=== PATIENT | female | born 1955 | race Caucasian/White ===

== ENCOUNTER 2021-01-23 11:19 | Inpatient (IN) | payer MEDICARE, BC ==
[2021-01-23] MEDS ORDERED: Meclizine HCl 25 MG TAB ONE (11:48)
[2021-01-23] MEDS ORDERED: Ondansetron PF 4 MG/2 ML Vial ONE (11:48)
[2021-01-23 12:13] LABS: Hemoglobin 12.6 g/dL (12.0-15.5); Mean Corpuscular HGB CONC 29.6 g/dL (32.0-36.0); Mean Corpuscular Hemoglobin 23.6 pg (27.0-33.0); Mean Corpuscular Volume 79.8 fl (81.6-98.3); Platelet Count 96 10x3/uL (150-450); RBC Distribution Width 17.7 % (11.5-14.5); Red Blood Cell (RBC) Count 5.34 10x6/uL (3.90-5.03); White Blood Cell (WBC) Count 9.6 10x3/uL (3.5-10.5)
[2021-01-23 12:20] LABS: ALT (SGPT) 19 U/L (8-55); AST (SGOT) 20 U/L (5-34); Albumin 4.4 g/dL (3.4-4.8); Alkaline Phosphatase 144 U/L (40-110); Anion Gap 22 mmol/L (10-20); BUN (Urea Nitrogen) 13 mg/dL (9.8-20.1); Bilirubin, Total 1.2 mg/dL (0.2-1.2); CK (CPK) 29 U/L (29-168); Calc. Creatinine Clearance 0 mL/min (70-130); Calcium 9.5 mg/dL (7.8-10.44); Carbon Dioxide 24 mmol/L (23-31); Globulin 2.4 g/dL (2.4-3.5); Glucose 119 mg/dL (80-115); Lipase 12 U/L (8-78); Protein, Total 6.8 g/dL (5.8-8.1)
[2021-01-23 12:37] LABS: CKMB 0.8 ng/mL (0-6.6)
[2021-01-23 12:45] LABS: MDiff Complete? YES
[2021-01-23 12:46] LABS: Band 4 % (5-11); Lymphocytes 11 % (21-51); Neutrophil 74 % (42-75)
[2021-01-23 12:47] LABS: Hypochromia SLIGHT = 6-15 cells (100X) (0-5/hpf); Microcytosis SLIGHT = 6-15 cells (100X) (0-5/hpf); Monocytes 7 % (0-10); Myelocyte 3 % (0-0); Nucleated RBC 5 % (0); Polychromasia SLIGHT = 2-3 cells (100X) (0-2/hpf)
[2021-01-23 12:49] LABS: Elliptocytes SLIGHT = 2-5 cells (100X) (0-1/hpf); Platelet Morphology Comment Appears Decreased
[2021-01-23 12:59] LABS: Anisocytosis SLIGHT = 6-15 cells (100X) (0-5/hpf)
[2021-01-23 13:59] LABS: Sodium 137 mmol/L (136-145)
[2021-01-23 14:00] LABS: Potassium 4.1 mmol/L (3.5-5.1)
[2021-01-23 14:01] LABS: Chloride 97 mmol/L (98-107)
[2021-01-23 15:11] LABS: Troponin I 0.037 ng/mL (< 0.028)
[2021-01-23 15:18] LABS: Anion Gap 13 mmol/L (10-20)
[2021-01-23 15:28] LABS: BUN (Urea Nitrogen) 12 mg/dL (9.8-20.1); Calc. Creatinine Clearance 0 mL/min (70-130); Calcium 8.3 mg/dL (7.8-10.44); Carbon Dioxide 25 mmol/L (23-31); Chloride 106 mmol/L (98-107); Glucose 89 mg/dL (80-115); Potassium 4.3 mmol/L (3.5-5.1); Sodium 140 mmol/L (136-145)
[2021-01-23] MEDS ORDERED: Diazepam 10 MG/2 ML SYRINGE IVP PRN (16:46)
[2021-01-23] MEDS ORDERED: Meclizine HCl 12.5 MG TAB PO PRN (16:49)
[2021-01-23] MEDS ORDERED: Sodium Chloride 0.9% 1,000 ML IV SCH (17:00)
[2021-01-23] MEDS ORDERED: predniSONE 5 MG TAB PO PRN (17:03)
[2021-01-23 17:07] VITALS: BMI 25.0
[2021-01-23] MEDS: Promethazine HCl 12.5 MG in Sodium Chloride 0.9% 50 ML IVPB PRN ×2 (17:22→23:18)
[2021-01-23 18:48] LABS: Troponin I 0.027 ng/mL (< 0.028)
[2021-01-23] MEDS ORDERED: DOXEPIN HCL 6 MG PO SCH (21:00)
[2021-01-23] MEDS ORDERED: DANAZOL 200 MG PO SCH (21:00)
[2021-01-23] MEDS: ALPRAZolam 0.25 MG TAB PO SCH (21:42)
[2021-01-24] MEDS: Levothyroxine Sodium 25 MCG TAB PO SCH (06:08)
[2021-01-24] MEDS: lamoTRIgine 100 MG TAB PO SCH (09:20)
[2021-01-24] MEDS: Venlafaxine HCl XR 75 MG CAP PO SCH (09:20)
[2021-01-24] MEDS: ALPRAZolam 0.25 MG TAB PO SCH ×3 (09:20→21:50)
[2021-01-24 16:50] LABS: SARS-CoV-2 PCR by NAA Not Detected (NotDetected)
[2021-01-24] MEDS: hydrOXYzine 25 MG TAB PO PRN (22:12)
[2021-01-25] MEDS: hydrOXYzine 25 MG TAB PO PRN (05:43)
[2021-01-25] MEDS: Levothyroxine Sodium 25 MCG TAB PO SCH (05:43)
[2021-01-25] MEDS: Venlafaxine HCl XR 75 MG CAP PO SCH (09:04)
[2021-01-25] MEDS: lamoTRIgine 100 MG TAB PO SCH (09:04)
[2021-01-25] MEDS: ALPRAZolam 0.25 MG TAB PO SCH ×2 (09:04→15:54)
[2021-01-25 15:33] VITALS: BP 126/74; TEMP 98.2
== END 2021-01-25 17:20 | disposition home or self-care (01) | DRG 149 ==
LOC: CSHERS 11:19 → CSHTELE 14:13 → INTOOBSV 14:46 → CSHTELE 14:46 → UNDOADMOB 14:46 → OBSVTOIN 01-25 11:32
PROVIDERS: ADMIT Hospitalist; ATTEND Hospitalist
DX: H81.10 Benign paroxysmal vertigo, unspecified ear (principal); C94.40 Acute panmyelosis with myelofibrosis not having achieved remission; E03.9 Hypothyroidism, unspecified; F41.9 Anxiety disorder, unspecified; F32.9 Major depressive disorder, single episode, unspecified; I10 Essential (primary) hypertension; R11.2 Nausea with vomiting, unspecified; M06.9 Rheumatoid arthritis, unspecified; Z90.49 Acquired absence of other specified parts of digestive tract; I65.22 Occlusion and stenosis of left carotid artery; Z20.822 Contact with and (suspected) exposure to COVID-19
CPT/HCPCS: 36415; 70450; 71045; 74177; 80053; 82550; 82553; 83605; 83690; 84484; 85025; 87635; 93005; 96374; 96375; G0378; J0610; J2405; J2550; J3490; U0003; U0005

== ENCOUNTER 2021-02-01 14:43 | Emergency (ER) | payer MEDICARE, BC ==
[2021-02-01 15:57] LABS: Hemoglobin 11.1 g/dL (12.0-15.5); Mean Corpuscular HGB CONC 29.4 g/dL (32.0-36.0); Mean Corpuscular Hemoglobin 22.9 pg (27.0-33.0); Mean Corpuscular Volume 77.7 fl (81.6-98.3); RBC Distribution Width 17.2 % (11.5-14.5); Red Blood Cell (RBC) Count 4.85 10x6/uL (3.90-5.03); White Blood Cell (WBC) Count 7.9 10x3/uL (3.5-10.5)
[2021-02-01 16:04] LABS: Acetaminophen Less than 6.0 mcg/mL (10.0-30.0); Alcohol Less than 10 mg/dL (Less than 10); CK (CPK) 37 U/L (29-168); Salicylate Less than 8.0 mg/dL (15.0-30.0)
[2021-02-01 16:05] LABS: Bilirubin Neg (Negative); Blood, Urine Negative (Negative); Clarity Clear (Clear); Glucose, Urine (Dipstick) Normal (Negative); Ketone, Urine Negative (Negative); Leukocyte Negative (Negative); Nitrite Negative (Negative); Protein, Urine (Dipstick) Negative (Neg-Trace); Urobilinogen Normal mg/dL (Less than 2)
[2021-02-01 16:13] LABS: Amphetamine Not Detected (NotDetected); Barbiturates Screen Not Detected (NotDetected); Benzodiazepine Screen Not Detected (NotDetected); Cocaine Metabolite Screen Not Detected (NotDetected); Methadone Not Detected (NotDetected); Methamphetamine Not Detected (NotDetected); Opiate Screen Not Detected (NotDetected); Oxycodone Screen Not Detected (NotDetected); Phencyclidine (PCP) Not Detected (NotDetected); THC/Cannabinoid Screen Not Detected (NotDetected); Tricyclic Screen Not Detected (NotDetected)
[2021-02-01 16:23] LABS: INR-International Normal Ratio 1.1; PTT 34.5 sec (22.0-33.0); Prothrombin Time 11.4 sec (9.5-12.1)
[2021-02-01 16:30] LABS: ALT (SGPT) 11 U/L (8-55); AST (SGOT) 16 U/L (5-34); Albumin 4.8 g/dL (3.4-4.8); Alkaline Phosphatase 123 U/L (40-110); Anion Gap 16 mmol/L (10-20); BUN (Urea Nitrogen) 16 mg/dL (9.8-20.1); Bilirubin, Total 0.8 mg/dL (0.2-1.2); Calc. Creatinine Clearance 0 mL/min (70-130); Calcium 9.9 mg/dL (7.8-10.44); Carbon Dioxide 27 mmol/L (23-31); Chloride 99 mmol/L (98-107); Globulin 2.5 g/dL (2.4-3.5); Glucose 95 mg/dL (80-115); Potassium 3.9 mmol/L (3.5-5.1); Protein, Total 7.3 g/dL (5.8-8.1); Sodium 138 mmol/L (136-145)
[2021-02-01 17:24] LABS: Band 1 % (5-11); Eosinophils 1 % (0-10); Lymphocytes 20 % (21-51); Monocytes 5 % (0-10); Myelocyte 3 % (0-0); Neutrophil 66 % (42-75); Nucleated RBC 5 % (0); Promyelocytes 1 % (0-0); Reactive Lymphocytes 2 % (0-10)
[2021-02-01 17:25] LABS: Platelet Count 88 10x3/uL (150-450)
[2021-02-01 17:26] LABS: Anisocytosis SLIGHT = 6-15 cells (100X) (0-5/hpf); Hypochromia SLIGHT = 6-15 cells (100X) (0-5/hpf); MDiff Complete? YES; Manual Diff?? YES; Microcytosis SLIGHT = 6-15 cells (100X) (0-5/hpf); Polychromasia SLIGHT = 2-3 cells (100X) (0-2/hpf)
[2021-02-01 17:27] LABS: Stomatocytes SLIGHT = 2-5 cells (100X) (0-1/hpf)
[2021-02-01 17:28] LABS: Elliptocytes MODERATE= 6-15 cells (100X) (0-1/hpf); Ovalocytes SLIGHT = 2-5 cells (100X) (0-1/hpf); Poikilocytosis SLIGHT = 6-15 cells (100X) (0-5/hpf); Tear Drops MODERATE= 6-15 cells (100X) (0-1/hpf)
[2021-02-01 17:29] LABS: Large Platelets SLIGHT; Platelet Morphology Comment Appears Decreased
[2021-02-01] MEDS ORDERED: Lorazepam 1 MG TAB ONE (18:02)
== END 2021-02-01 20:16 | disposition home or self-care (01) ==
LOC: CSHERS 14:43
DX: H81.10 Benign paroxysmal vertigo, unspecified ear (principal); R29.700 NIHSS score 0; I11.0 Hypertensive heart disease with heart failure; I50.9 Heart failure, unspecified; M06.9 Rheumatoid arthritis, unspecified; D75.81 Myelofibrosis; J42 Unspecified chronic bronchitis; Z79.899 Other long term (current) drug therapy
CPT/HCPCS: 70450; 71045; 80053; 80306; 80307; 81003; 82550; 83735; 84443; 84484; 85025; 85610; 85730; 93005

== ENCOUNTER 2021-02-02 23:58 | Emergency (ER) | payer MEDICARE, BC | END 2021-02-03 01:05 | disposition home or self-care (01) | LOC: CSHERS 23:58 | DX: Z00.00 Encounter for general adult medical examination without abnormal findings (principal); M06.9 Rheumatoid arthritis, unspecified; J42 Unspecified chronic bronchitis; I11.0 Hypertensive heart disease with heart failure; I50.9 Heart failure, unspecified; Z79.899 Other long term (current) drug therapy | CPT/HCPCS: 99281 ==

== ENCOUNTER 2022-03-27 14:30 | Emergency (ER) | payer MEDICARE, BC ==
[2022-03-27 15:41] LABS: Hemoglobin 9.3 g/dL (12.0-15.5); Mean Corpuscular HGB CONC 33.2 g/dL (32.0-36.0); Mean Corpuscular Hemoglobin 27.8 pg (27.0-33.0); Mean Corpuscular Volume 83.8 fl (81.6-98.3); Platelet Count 57 10x3/uL (150-450); RBC Distribution Width 18.6 % (11.5-14.5); Red Blood Cell (RBC) Count 3.34 10x6/uL (3.90-5.03); White Blood Cell (WBC) Count 6.5 10x3/uL (3.5-10.5)
[2022-03-27 15:48] LABS: ALT (SGPT) 24 U/L (8-55); AST (SGOT) 29 U/L (5-34); Albumin 4.2 g/dL (3.4-4.8); Alkaline Phosphatase 103 U/L (40-110); Anion Gap 18 mmol/L (10-20); BUN (Urea Nitrogen) 23 mg/dL (9.8-20.1); CK (CPK) 23 U/L (29-168); Calc. Creatinine Clearance 0 mL/min (70-130); Calcium 8.7 mg/dL (7.8-10.44); Carbon Dioxide 18 mmol/L (23-31); Chloride 102 mmol/L (98-107); Globulin 2.2 g/dL (2.4-3.5); Glucose 126 mg/dL (80-115); Magnesium 2.4 mg/dL (1.6-2.6); Potassium 5.1 mmol/L (3.5-5.1); Protein, Total 6.4 g/dL (5.8-8.1); Sodium 133 mmol/L (136-145)
[2022-03-27 16:07] LABS: Band 3 % (5-11); Lymphocytes 13 % (21-51); Monocytes 4 % (0-10); Myelocyte 5 % (0-0); Neutrophil 75 % (42-75); Nucleated RBC 4 % (0)
[2022-03-27 16:09] LABS: MDiff Complete? YES
[2022-03-27 16:10] LABS: Anisocytosis SLIGHT = 6-15 cells (100X) (0-5/hpf); Poikilocytosis SLIGHT = 6-15 cells (100X) (0-5/hpf)
[2022-03-27 16:12] LABS: Ovalocytes SLIGHT = 2-5 cells (100X) (0-1/hpf); Platelet Morphology Comment Appears Decreased; Polychromasia SLIGHT = 2-3 cells (100X) (0-2/hpf); Schistocytes SLIGHT = 2-5 cells (100X) (0-1/hpf); Tear Drops SLIGHT = 2-5 cells (100X) (0-1/hpf)
[2022-03-27 16:38] LABS: Bilirubin Neg (Negative); Blood, Urine Negative (Negative); Clarity Clear (Clear); Glucose, Urine (Dipstick) Normal (Negative); Ketone, Urine Negative (Negative); Leukocyte 25 (Negative); Nitrite Negative (Negative); Protein, Urine (Dipstick) Negative (Neg-Trace); Specific Gravity, Urine 1.015 (1.002-1.036); Urobilinogen Normal mg/dL (Less than 2)
[2022-03-27 16:47] LABS: Bacteria/HPF 1+ HPF (None Seen); RBC/HPF 0-3 HPF (0-3); Squamous Epithelial 0-3 HPF (0-3); WBC/HPF 0-3 HPF (0-3)
== END 2022-03-27 17:09 | disposition home or self-care (01) ==
LOC: CSHERS 14:30
DX: D64.9 Anemia, unspecified (principal); R53.1 Weakness; I11.0 Hypertensive heart disease with heart failure; I50.9 Heart failure, unspecified; Z79.899 Other long term (current) drug therapy
CPT/HCPCS: 36415; 70450; 71045; 80053; 81003; 81015; 82550; 83615; 83735; 85025; 85046; 86900; 86901; 93005

== ENCOUNTER 2022-06-23 11:03 | Emergency (ER) | payer MEDICARE, BC ==
[2022-06-23 12:56] LABS: Hemoglobin 8.1 g/dL (12.0-15.5); Mean Corpuscular Hemoglobin 26.3 pg (27.0-33.0); Mean Corpuscular Volume 87.7 fl (81.6-98.3); Mean Platelet Volume 11.6 fl (7.4-10.4); Platelet Count 84 10x3/uL (150-450); RBC Distribution Width 18.7 % (11.5-14.5); Red Blood Cell (RBC) Count 3.08 10x6/uL (3.90-5.03)
[2022-06-23 12:57] LABS: ALT (SGPT) 19 U/L (8-55); AST (SGOT) 26 U/L (5-34); Alkaline Phosphatase 74 U/L (40-110); Anion Gap 14 mmol/L (10-20); BUN (Urea Nitrogen) 21 mg/dL (9.8-20.1); Bilirubin, Total 0.8 mg/dL (0.2-1.2); Calc. Creatinine Clearance 0 mL/min (70-130); Calcium 8.8 mg/dL (7.8-10.44); Carbon Dioxide 23 mmol/L (23-31); Chloride 98 mmol/L (98-107); Estimated GFR 34; Globulin 2.1 g/dL (2.4-3.5); Glucose 88 mg/dL (80-115); Potassium 4.3 mmol/L (3.5-5.1); Protein, Total 6.1 g/dL (5.8-8.1); Sodium 131 mmol/L (136-145)
[2022-06-23 13:16] LABS: MDiff Complete? YES
[2022-06-23 13:31] LABS: Band 5 % (5-11); Lymphocytes 12 % (21-51); Metamyelocyte 2 % (0-0); Monocytes 4 % (0-10); Neutrophil 73 % (42-75); Nucleated RBC 3 % (0); Platelet Morphology Comment Appears Decreased; Reactive Lymphocytes 4 % (0-10)
[2022-06-23 13:32] LABS: Anisocytosis SLIGHT = 6-15 cells (100X) (0-5/hpf); Hypochromia SLIGHT = 6-15 cells (100X) (0-5/hpf); Microcytosis SLIGHT = 6-15 cells (100X) (0-5/hpf); Ovalocytes SLIGHT = 2-5 cells (100X) (0-1/hpf); Polychromasia SLIGHT = 2-3 cells (100X) (0-2/hpf); Tear Drops SLIGHT = 2-5 cells (100X) (0-1/hpf)
== END 2022-06-23 13:00 | disposition home or self-care (01) ==
LOC: CSHERS 11:03
DX: R53.1 Weakness (principal); I11.0 Hypertensive heart disease with heart failure; I50.9 Heart failure, unspecified; M06.9 Rheumatoid arthritis, unspecified; J42 Unspecified chronic bronchitis; Z79.899 Other long term (current) drug therapy
CPT/HCPCS: 36415; 80053; 85025; 86850; 86900; 86901; 93005

== ENCOUNTER 2022-07-18 11:16 | Outpatient (CLI) | payer MEDICARE, BC | END 2022-07-18 11:17 | disposition home or self-care (01) | LOC: CSHMAMMO 11:16 | PROVIDERS: ATTEND Family Medicine | DX: Z12.31 Encounter for screening mammogram for malignant neoplasm of breast (principal); Z85.89 Personal history of malignant neoplasm of other organs and systems | CPT/HCPCS: 77063; 77067 ==

== ENCOUNTER 2022-12-01 09:30 | Emergency (ER) | payer OTHER, MEDICARE, BC ==
[2022-12-01] MEDS ORDERED: Ketorolac Tromethamine 30 MG/ML VIAL ONE (10:55)
== END 2022-12-01 11:00 | disposition home or self-care (01) ==
LOC: CSHERS 09:30
DX: S16.1XXA Strain of muscle, fascia and tendon at neck level, initial encounter (principal); S29.012A Strain of muscle and tendon of back wall of thorax, initial encounter; I11.0 Hypertensive heart disease with heart failure; I50.9 Heart failure, unspecified; V49.9XXA Car occupant (driver) (passenger) injured in unspecified traffic accident, initial encounter
CPT/HCPCS: 96372; 99283; J1885

== ENCOUNTER 2022-12-16 11:52 | Emergency (ER) | payer MEDICARE, BC ==
[2022-12-16 13:59] LABS: Hemoglobin 8.7 g/dL (12.0-15.5); Mean Corpuscular HGB CONC 30.7 g/dL (32.0-36.0); Mean Corpuscular Hemoglobin 26.9 pg (27.0-33.0); Mean Corpuscular Volume 87.6 fl (81.6-98.3); Mean Platelet Volume 9.2 fl (7.4-10.4); Platelet Count 74 10x3/uL (150-450); RBC Distribution Width 17.2 % (11.5-14.5); Red Blood Cell (RBC) Count 3.23 10x6/uL (3.90-5.03); White Blood Cell (WBC) Count 4.6 10x3/uL (3.5-10.5)
[2022-12-16 14:02] LABS: ALT (SGPT) 16 U/L (8-55); AST (SGOT) 22 U/L (5-34); Albumin 4.1 g/dL (3.4-4.8); Alkaline Phosphatase 81 U/L (40-110); Anion Gap 12 mmol/L (10-20); BUN (Urea Nitrogen) 21 mg/dL (9.8-20.1); Bilirubin, Total 0.8 mg/dL (0.2-1.2); Calc. Creatinine Clearance 0 mL/min (70-130); Calcium 8.7 mg/dL (7.8-10.44); Carbon Dioxide 25 mmol/L (23-31); Chloride 101 mmol/L (98-107); Estimated GFR 53; Globulin 2.1 g/dL (2.4-3.5); Glucose 67 mg/dL (80-115); Potassium 5.1 mmol/L (3.5-5.1); Protein, Total 6.2 g/dL (5.8-8.1); Sodium 133 mmol/L (136-145)
[2022-12-16 14:10] LABS: Lymphocytes 34 % (21-51); Metamyelocyte 1 % (0-0); Monocytes 7 % (0-10); Myelocyte 1 % (0-0); Nucleated RBC 3 % (0)
[2022-12-16 14:11] LABS: Band 3 % (5-11); Neutrophil 53 % (42-75)
[2022-12-16 14:12] LABS: Anisocytosis SLIGHT = 6-15 cells (100X) (0-5/hpf); Elliptocytes SLIGHT = 2-5 cells (100X) (0-1/hpf); Ovalocytes MODERATE= 6-15 cells (100X) (0-1/hpf); Poikilocytosis MODERATE=16-30 cells (100X) (0-5/hpf); Polychromasia SLIGHT = 2-3 cells (100X) (0-2/hpf)
[2022-12-16 14:13] LABS: Large Platelets SLIGHT; Microcytosis SLIGHT = 6-15 cells (100X) (0-5/hpf); Platelet Morphology Comment Appears Decreased; Tear Drops MODERATE= 6-15 cells (100X) (0-1/hpf)
[2022-12-16 14:14] LABS: Vacuoles SLIGHT
[2022-12-16 14:15] LABS: MDiff Complete? YES
[2022-12-16] MEDS ORDERED: Lorazepam 2 MG/ML VIAL ONE (14:33)
[2022-12-16 15:18] LABS: Bilirubin Neg (Negative); Blood, Urine Negative (Negative); Glucose, Urine (Dipstick) Normal (Negative); Ketone, Urine Negative (Negative); Leukocyte Negative (Negative); Nitrite Negative (Negative); Protein, Urine (Dipstick) Negative (Neg-Trace); Specific Gravity, Urine 1.015 (1.005-1.030); Urobilinogen Normal mg/dL (Less than 2)
[2022-12-16 15:20] LABS: Clarity Clear (Clear)
== END 2022-12-16 16:40 | disposition home or self-care (01) ==
LOC: CSHERS 11:52 → EEVIPCON 11:52 → CSHERS 16:40
DX: R53.1 Weakness (principal); I11.0 Hypertensive heart disease with heart failure; I50.9 Heart failure, unspecified
CPT/HCPCS: 36415; 70450; 80053; 81003; 83605; 84484; 85025; 93005; 96374; J2060

== ENCOUNTER 2022-12-27 10:30 | Emergency (ER) | payer MEDICARE, BC ==
[2022-12-27 11:49] LABS: Hemoglobin 8.1 g/dL (12.0-15.5); Mean Corpuscular HGB CONC 30.5 g/dL (32.0-36.0); Mean Corpuscular Hemoglobin 26.7 pg (27.0-33.0); Mean Corpuscular Volume 87.8 fl (81.6-98.3); Mean Platelet Volume 9.8 fl (7.4-10.4); Platelet Count 53 10x3/uL (150-450); Red Blood Cell (RBC) Count 3.03 10x6/uL (3.90-5.03)
[2022-12-27 12:01] LABS: ALT (SGPT) 16 U/L (8-55); AST (SGOT) 21 U/L (5-34); Alkaline Phosphatase 56 U/L (40-110); Anion Gap 13 mmol/L (10-20); BUN (Urea Nitrogen) 14 mg/dL (9.8-20.1); Bilirubin, Total 0.9 mg/dL (0.2-1.2); Calc. Creatinine Clearance 0 mL/min (70-130); Calcium 9.3 mg/dL (7.8-10.44); Carbon Dioxide 24 mmol/L (23-31); Chloride 107 mmol/L (98-107); Estimated GFR 51; Globulin 1.7 g/dL (2.4-3.5); Glucose 64 mg/dL (80-115); Lipase 8 U/L (8-78); Potassium 4.3 mmol/L (3.5-5.1); Protein, Total 5.7 g/dL (5.8-8.1); Sodium 140 mmol/L (136-145)
[2022-12-27 12:20] LABS: MDiff Complete? YES
[2022-12-27 12:33] LABS: Band 3 % (5-11); Neutrophil 61 % (42-75); Nucleated RBC 7 % (0); Reactive Lymphocytes 1 % (0-10)
[2022-12-27 12:34] LABS: Lymphocytes 23 % (21-51); Monocytes 11 % (0-10)
[2022-12-27 12:38] LABS: Ovalocytes MODERATE= 6-15 cells (100X) (0-1/hpf); Tear Drops SLIGHT = 2-5 cells (100X) (0-1/hpf)
[2022-12-27 12:41] LABS: Hypochromia SLIGHT = 6-15 cells (100X) (0-5/hpf); Polychromasia SLIGHT = 2-3 cells (100X) (0-2/hpf); Stomatocytes SLIGHT = 2-5 cells (100X) (0-1/hpf)
[2022-12-27 12:42] LABS: Elliptocytes SLIGHT = 2-5 cells (100X) (0-1/hpf); Macrocytosis SLIGHT = 6-15 cells (100X) (0-5/hpf); Microcytosis SLIGHT = 6-15 cells (100X) (0-5/hpf); Platelet Morphology Comment Appears Decreased
[2022-12-27 12:43] LABS: White Blood Cell (WBC) Count 2.7 10x3/uL (3.5-10.5)
== END 2022-12-27 15:33 | disposition home or self-care (01) ==
LOC: CSHERS 10:30
DX: R11.10 Vomiting, unspecified (principal); D72.819 Decreased white blood cell count, unspecified; I11.0 Hypertensive heart disease with heart failure; I50.9 Heart failure, unspecified
CPT/HCPCS: 36415; 80053; 83605; 83690; 85025; 99284

== ENCOUNTER 2022-12-28 09:46 | Emergency (ER) | payer MEDICARE, BC ==
[2022-12-28 10:58] LABS: ALT (SGPT) 15 U/L (8-55); AST (SGOT) 22 U/L (5-34); Albumin 4.1 g/dL (3.4-4.8); Alkaline Phosphatase 60 U/L (40-110); Anion Gap 13 mmol/L (10-20); BUN (Urea Nitrogen) 10 mg/dL (9.8-20.1); Bilirubin, Total 0.7 mg/dL (0.2-1.2); Calc. Creatinine Clearance 0 mL/min (70-130); Calcium 8.9 mg/dL (7.8-10.44); Carbon Dioxide 24 mmol/L (23-31); Chloride 107 mmol/L (98-107); Estimated GFR 62; Glucose 80 mg/dL (80-115); Hemoglobin 8.5 g/dL (12.0-15.5); Lipase 9 U/L (8-78); Mean Corpuscular Hemoglobin 26.6 pg (27.0-33.0); Mean Corpuscular Volume 88.7 fl (81.6-98.3); Mean Platelet Volume 9.2 fl (7.4-10.4); Platelet Count 45 10x3/uL (150-450); Potassium 4.1 mmol/L (3.5-5.1); Protein, Total 6.1 g/dL (5.8-8.1); Red Blood Cell (RBC) Count 3.19 10x6/uL (3.90-5.03); Sodium 140 mmol/L (136-145); White Blood Cell (WBC) Count 2.5 10x3/uL (3.5-10.5)
[2022-12-28 11:05] LABS: MDiff Complete? YES
[2022-12-28 11:37] LABS: Band 3 % (5-11); Lymphocytes 25 % (21-51); Monocytes 6 % (0-10); Neutrophil 64 % (42-75); Nucleated RBC 6 % (0); Promyelocytes 1 % (0-0); Reactive Lymphocytes 1 % (0-10)
[2022-12-28 11:38] LABS: Hypochromia SLIGHT = 6-15 cells (100X) (0-5/hpf); Polychromasia SLIGHT = 2-3 cells (100X) (0-2/hpf)
[2022-12-28] MEDS ORDERED: Ondansetron PF 4 MG/2 ML Vial ONE (11:38)
[2022-12-28 11:39] LABS: Ovalocytes SLIGHT = 2-5 cells (100X) (0-1/hpf)
[2022-12-28] MEDS ORDERED: Lorazepam 2 MG/ML VIAL ONE (11:39)
[2022-12-28 11:40] LABS: Elliptocytes SLIGHT = 2-5 cells (100X) (0-1/hpf); Macrocytosis SLIGHT = 6-15 cells (100X) (0-5/hpf); Microcytosis SLIGHT = 6-15 cells (100X) (0-5/hpf); Tear Drops SLIGHT = 2-5 cells (100X) (0-1/hpf)
[2022-12-28 11:41] LABS: Platelet Morphology Comment Appears Decreased
[2022-12-28 12:12] LABS: Bilirubin Neg (Negative); Blood, Urine Negative (Negative); Clarity Slightly Cloudy (Clear); Glucose, Urine (Dipstick) Normal (Negative); Ketone, Urine 5 mg/dL (Negative); Leukocyte 500 (Negative); Nitrite Negative (Negative); Protein, Urine (Dipstick) 30 mg/dl (Neg-Trace); Specific Gravity, Urine 1.025 (1.005-1.030); Urobilinogen Normal mg/dL (Less than 2)
[2022-12-28 12:22] LABS: RBC/HPF 0-3 HPF (0-3)
[2022-12-28 12:23] LABS: Bacteria/HPF 3+ HPF (None Seen)
== END 2022-12-28 15:02 | disposition home or self-care (01) ==
LOC: CSHERS 09:46
DX: R11.2 Nausea with vomiting, unspecified (principal); D72.819 Decreased white blood cell count, unspecified; I11.0 Hypertensive heart disease with heart failure; I50.9 Heart failure, unspecified
CPT/HCPCS: 80053; 81003; 81015; 83605; 83690; 85025; 93005; 96361; 96374; 96375; J2060; J2405

== ENCOUNTER 2023-05-11 17:55 | Emergency (ER) | payer MEDICARE, BC ==
[2023-05-11] MEDS ORDERED: Lorazepam 2 MG/ML VIAL ONE (18:58)
[2023-05-11 19:12] LABS: Hemoglobin 7.8 g/dL (12.0-15.5); Mean Corpuscular HGB CONC 29.7 g/dL (32.0-36.0); Mean Corpuscular Hemoglobin 27.3 pg (27.0-33.0); Platelet Count 58 10x3/uL (150-450); RBC Distribution Width 17.1 % (11.5-14.5); Red Blood Cell (RBC) Count 2.86 10x6/uL (3.90-5.03); White Blood Cell (WBC) Count 2.8 10x3/uL (3.5-10.5)
[2023-05-11 19:14] LABS: INR-International Normal Ratio 1.2; PTT 35.3 sec (22.0-33.0); Prothrombin Time 12.6 sec (9.5-12.1)
[2023-05-11 19:17] LABS: ALT (SGPT) 17 U/L (8-55); AST (SGOT) 20 U/L (5-34); Albumin 3.9 g/dL (3.4-4.8); Alkaline Phosphatase 99 U/L (40-110); Anion Gap 15 mmol/L (10-20); BUN (Urea Nitrogen) 13 mg/dL (9.8-20.1); Bilirubin, Total 1.1 mg/dL (0.2-1.2); CK (CPK) 43 U/L (29-168); Calc. Creatinine Clearance 0 mL/min (70-130); Calcium 8.7 mg/dL (7.8-10.44); Carbon Dioxide 18 mmol/L (23-31); Chloride 108 mmol/L (98-107); Estimated GFR 62; Globulin 1.8 g/dL (2.4-3.5); Glucose 64 mg/dL (80-115); Potassium 3.8 mmol/L (3.5-5.1); Protein, Total 5.7 g/dL (5.8-8.1); Sodium 137 mmol/L (136-145)
[2023-05-11 20:41] LABS: MDiff Complete? YES
[2023-05-11 20:43] LABS: Bilirubin Neg (Negative); Blood, Urine Negative (Negative); Clarity Clear (Clear); Glucose, Urine (Dipstick) Normal (Negative); Ketone, Urine Negative (Negative); Leukocyte 25 (Negative); Nitrite Negative (Negative); Protein, Urine (Dipstick) 30 mg/dl (Neg-Trace); Urobilinogen Normal mg/dL (Less than 2)
[2023-05-11 21:05] LABS: Bacteria/HPF 3+ HPF (None Seen); CAUTI Indications for Culture Alt mental st,lethar; Mucous/LPF 2+ LPF (<2+); RBC/HPF 0-3 HPF (0-3); WBC/HPF 0-3 HPF (0-3)
[2023-05-11 21:06] LABS: Urine Culture Reflex No No
[2023-05-11 21:22] LABS: Band 1 % (5-11); Eosinophils 1 % (0-10); Lymphocytes 27 % (21-51); Monocytes 5 % (0-10); Neutrophil 66 % (42-75); Nucleated RBC (Manual Ct) 2 % (0)
[2023-05-11 21:27] LABS: Anisocytosis MODERATE=16-30 cells (100X) (0-5/hpf); Elliptocytes SLIGHT = 2-5 cells (100X) (0-1/hpf); Hypochromia SLIGHT = 6-15 cells (100X) (0-5/hpf); Platelet Adequacy Comment Appears Decreased; Poikilocytosis MODERATE=16-30 cells (100X) (0-5/hpf); Tear Drops SLIGHT = 2-5 cells (100X) (0-1/hpf)
== END 2023-05-11 22:26 | disposition home or self-care (01) ==
LOC: CSHERS 17:55
DX: S09.90XA Unspecified injury of head, initial encounter (principal); D64.9 Anemia, unspecified; D75.81 Myelofibrosis; I11.9 Hypertensive heart disease without heart failure; I50.9 Heart failure, unspecified; W19.XXXA Unspecified fall, initial encounter
CPT/HCPCS: 36430; 70450; 70486; 76377; 80053; 81001; 82550; 84484; 85025; 85610; 85730; 86850; 86900; 86901; 93005; 94760; 96374; J2060; P9016

== ENCOUNTER 2023-05-16 16:24 | Emergency (ER) | payer MEDICARE, BC ==
[2023-05-16 17:32] LABS: ALT (SGPT) 16 U/L (8-55); AST (SGOT) 18 U/L (5-34); Albumin 3.6 g/dL (3.4-4.8); Alkaline Phosphatase 101 U/L (40-110); Anion Gap 13 mmol/L (10-20); BUN (Urea Nitrogen) 10 mg/dL (9.8-20.1); Calc. Creatinine Clearance 0 mL/min (70-130); Calcium 8.9 mg/dL (7.8-10.44); Carbon Dioxide 21 mmol/L (23-31); Chloride 110 mmol/L (98-107); Estimated GFR 75; Globulin 1.8 g/dL (2.4-3.5); Glucose 87 mg/dL (80-115); Magnesium 1.7 mg/dL (1.6-2.6); Potassium 3.5 mmol/L (3.5-5.1); Protein, Total 5.4 g/dL (5.8-8.1); Sodium 140 mmol/L (136-145)
[2023-05-16 17:33] LABS: Hemoglobin 9.2 g/dL (12.0-15.5); Mean Corpuscular HGB CONC 31.5 g/dL (32.0-36.0); Mean Platelet Volume 10.9 fl (7.4-10.4); Platelet Count 54 10x3/uL (150-450); RBC Distribution Width 16.6 % (11.5-14.5); Red Blood Cell (RBC) Count 3.28 10x6/uL (3.90-5.03)
[2023-05-16 17:53] LABS: MDiff Complete? YES
[2023-05-16 18:14] LABS: Band 6 % (5-11); Lymphocytes 32 % (21-51); Metamyelocyte 1 % (0-0); Monocytes 7 % (0-10); Myelocyte 1 % (0-0); Neutrophil 53 % (42-75); Nucleated RBC (Manual Ct) 3 % (0)
[2023-05-16 18:16] LABS: Anisocytosis SLIGHT = 6-15 cells (100X) (0-5/hpf); Poikilocytosis SLIGHT = 6-15 cells (100X) (0-5/hpf)
[2023-05-16 18:17] LABS: Hypochromia SLIGHT = 6-15 cells (100X) (0-5/hpf); Ovalocytes MODERATE= 6-15 cells (100X) (0-1/hpf); Platelet Adequacy Comment Significant decrease; Tear Drops SLIGHT = 2-5 cells (100X) (0-1/hpf)
== END 2023-05-16 19:30 | disposition home or self-care (01) ==
LOC: CSHERS 16:24
DX: S09.90XA Unspecified injury of head, initial encounter (principal); D46.9 Myelodysplastic syndrome, unspecified; I10 Essential (primary) hypertension; W18.30XA Fall on same level, unspecified, initial encounter
CPT/HCPCS: 70450; 70486; 72125; 76377; 80053; 83735; 85025